=== PATIENT | male | born 1960 | race Caucasian/White ===

== ENCOUNTER → 2024-05-01 09:19 | Outpatient (REF) | payer OTHER, SELFPAY ==
[2024-05-01 15:47] LABS: HIV Combo Negative (Negative)
[2024-05-02 09:00] LABS: Hepatitis B Surface Antigen Negative (Negative)
[2024-05-02 09:18] LABS: Hepatitis C Antibody Negative (Negative)
[2024-05-02 12:40] LABS: Hepatitis B Surface Antibody Indeterminate
== END ==
LOC: OHS 09:19
PROVIDERS: ATTENDING PHYSICIAN Nurse Practitioner Family
DX: Z57.8 Occupational exposure to other risk factors (principal)
CPT/HCPCS: 36415; 86706; 86803; 87340; 87389

== ENCOUNTER → 2024-08-01 14:59 | Outpatient (REF) | payer OTHER, SELFPAY ==
[2024-08-01 16:38] LABS: Hepatitis B Surface Antibody Positive
== END ==
LOC: REG 14:59
PROVIDERS: ATTENDING PHYSICIAN Nurse Practitioner Family
DX: Z23 Encounter for immunization (principal)
CPT/HCPCS: 36415; 86706